=== PATIENT | male | born 1985 | race Hispanic/Latino ===

== ENCOUNTER → 2016-08-23 | Outpatient (REF) | payer OTHER ==
[~2016-08-23] MED LIST: ACET-2264 PO; AMOX500C5 PO; DESL1TBM2 PO; DM/P295L13; GUAI100L27 PO; OSLT75C PO; OXYM15MI4 NS
[2016-08-23 11:02] LABS: AMPHETAMINE SCREEN, URINE Negative (Negative); CANNABINOID SCREEN, URINE Negative (Negative); METHAMPHETAMINE SCREEN URINE S NEGATIVE (NEGATIVE); OPIATE SCREEN URINE Negative (Negative); PROPOXYPHENE STAT NEGATIVE (NEGATIVE)
== END ==
LOC: LAB 10:30
PROVIDERS: ATTEND Family Medicine
DX: Z79.891 Long term (current) use of opiate analgesic (principal)
CPT/HCPCS: 80307